=== PATIENT | male | born 1950 | race Caucasian/White ===

== ENCOUNTER 2017-09-11 12:21 | Outpatient (CLI) | payer MEDICARE ==
--- NOTE | 2017-09-11 14:47 | XRAY Report ---
Procedure Date: 09/11/2017 Accession Number: [id number] / [id number] Procedure: XRS - Knee 2 View BILAT CPT Code: FULL RESULT: EXAM: Knee 2 View BILAT DATE: 09/11/2017 12:37 PM CLINICAL HISTORY: KNEE JOINT PAIN . 3 MONTHS, BILATERAL COMPARISON: 12/30/2014. TECHNIQUE: 2 views each. FINDINGS: RIGHT KNEE: Bones: Normal. No fractures or bone lesions. Joints: Mild narrowing of the medial femoral tibial compartment. No joint effusion. Soft Tissues: Normal. No soft tissue swelling. LEFT KNEE: Bones: Normal. No fractures or bone lesions. Joints: Moderate narrowing of the medial femoral tibial compartment and mild narrowing of the lateral femorotibial compartment. No joint effusion. Soft Tissues: Normal. No soft tissue swelling. IMPRESSION: Mild to moderate degenerative changes of the knees as described. RADIA
== END 2017-09-11 12:22 | disposition home or self-care (01) ==
LOC: DI.S 12:21
PROVIDERS: ATTEND Nurse Practitioner Family
DX: M17.0 Bilateral primary osteoarthritis of knee (principal)
CPT/HCPCS: 73565

== ENCOUNTER 2020-06-24 08:00 | Outpatient (CLI) | payer MEDICARE ==
--- NOTE | 2020-06-24 15:31 | XRAY Report ---
PROCEDURE: Knee 3 View BILAT INDICATIONS: BILATERAL KNEE PAIN TECHNIQUE: 3 views of the right and left knee(s) were acquired. COMPARISON: None. FINDINGS: Bones: No fractures or dislocations. No suspicious bony lesions. Mild tricompartment osteoarthritic degenerative changes noted in the knees bilaterally. Soft tissues: Small bilateral suprapatellar joint effusions. No suspicious soft tissue calcifications . IMPRESSION: 1. Mild bilateral knee tricompartmental osteoarthritis. 2. Small nonspecific bilateral knee joint effusions. Reviewed by: Siria Michaels MD, PhD on 06/24/2020 3:29 PM PDT Approved by: Siria Michaels MD, PhD on 06/24/2020 3:29 PM PDT Station ID: [id number]
== END 2020-06-24 23:59 | disposition home or self-care (01) ==
LOC: DI.S 08:00
PROVIDERS: ATTEND Physician Assistant Medical
DX: M17.0 Bilateral primary osteoarthritis of knee (principal); M25.462 Effusion, left knee; M25.461 Effusion, right knee

== ENCOUNTER 2020-08-10 07:24 | Outpatient (CLI) | payer MEDICARE ==
--- NOTE | 2020-08-10 14:26 | XRAY Report ---
PROCEDURE: Knee 4 View BILAT INDICATIONS: BILATERAL KNEE PX TECHNIQUE: 4 views of the bilateral knee(s) were acquired. COMPARISON: X-ray knee bilateral 06/24/2020, 09/11/2017, left the 06/29/2014 FINDINGS: Bones: No fractures or dislocations. No suspicious bony lesions. Right knee demonstrates mild medial and patellofemoral compartment narrowing. Minimal periarticular o steophytes are present. No erosions. Minimal effusion. Left knee demonstrates moderate medial and mild patellofemoral compartment narrowing. Small periartic ular osteophytes are present. No erosions. IMPRESSION: Bilateral predominantly medial and patellofemoral compartment narrowing, left greater th an right consistent with arthritis. Reviewed by: Mai Trinh MD on 08/10/2020 2:25 PM PDT Approved by: Mai Trinh MD on 08/10/2020 2:25 PM PDT Station ID: [id number]
== END 2020-08-10 23:59 | disposition home or self-care (01) ==
LOC: DI.N 07:24
PROVIDERS: ATTEND Physician Assistant
DX: M17.0 Bilateral primary osteoarthritis of knee (principal)

== ENCOUNTER 2021-08-22 08:00 | Outpatient (CLI) | payer MEDICARE ==
--- NOTE | 2021-08-22 17:32 | XRAY Report ---
PROCEDURE: Knee 4 View BILAT INDICATIONS: KNEE PX TECHNIQUE: 4 views of the bilateral knee(s) were acquired. COMPARISON: None. FINDINGS: Bones: No fractures or dislocations. Mild to moderate bilateral tricompartmental osteoarthritis is seen more prominent in medial femoral tibial compartments and medial patellofemoral compartments slig htly worse on the right side. No suspicious bony lesions. Soft tissues: Moderate bilateral suprapatellar joint effusion is seen. No suspicious soft tissue lynn cifications. IMPRESSION: Mild to moderate bilateral tricompartmental osteoarthritis and moderate joint effusion a s above. Reviewed by: Renny Colunga MD on 08/22/2021 5:31 PM PDT Approved by: Renny Colunga MD on 08/22/2021 5:31 PM PDT Station ID: [id number]
== END 2021-08-22 23:59 | disposition home or self-care (01) ==
LOC: DI.WOS 08:00
PROVIDERS: ATTEND Physician Assistant
DX: M17.0 Bilateral primary osteoarthritis of knee (principal); M25.462 Effusion, left knee; M25.461 Effusion, right knee

== ENCOUNTER 2022-05-18 11:27 | Outpatient (CLI) | payer MEDICARE ==
--- NOTE | 2022-05-19 08:59 | XRAY Report ---
PROCEDURE: Knee 4 View BILAT INDICATIONS: BILAT KNEE PAIN TECHNIQUE: 4 views of each knee(s) were acquired. COMPARISON: X-ray knees bilateral, 08/22/2021. FINDINGS: Bones: No fractures or dislocations. No suspicious bony lesions. Severe joint space narrowing in th e medial femorotibial compartment bilaterally. Mild progression of moderate tricompartmental knee caden int degeneration. Soft tissues: Small effusions bilaterally. No suspicious soft tissue calcifications or masses. IMPRESSION: 1. Moderate osteoarthritis bilaterally. 2. Small knee joint effusions bilaterally. Reviewed by: Joseph Serrano MD on 05/19/2022 8:58 AM PDT Approved by: Joseph Serrano MD on 05/19/2022 8:58 AM PDT Station ID: [id number]
== END 2022-05-18 11:28 | disposition home or self-care (01) ==
LOC: DI.WOS 11:27
PROVIDERS: ATTEND Orthopaedic Surgery
DX: M17.0 Bilateral primary osteoarthritis of knee (principal); M25.462 Effusion, left knee; M25.461 Effusion, right knee

== ENCOUNTER 2022-05-24 07:36 | Day surgery (SDC) | payer MEDICARE ==
[~2022-05-24 07:36] MED LIST: ACETAMINOPHEN 500 MG TABLET PO ONE; BUPIVACAINE 0.25% PF 30 ML VIAL ONE; CEFAZOLIN 2G/50ML 0.9% NS 2 GM/50 ML BAG IV ONE; CELECOXIB 100 MG CAPSULE PO ONE; DEXAMETHASONE 10 MG/ML VIAL ONE; KETOROLAC 30 MG/ML VIAL ONE; VANCOMYCIN 1 GM VIAL ONE
[2022-05-24] MEDS ORDERED: LACTATED RINGERS 1,000 ML IV ONE (07:45)
[2022-05-24] MEDS ORDERED: fentaNYL 100 MCG/2 ML VIAL ONE (08:14)
[2022-05-24] MEDS ORDERED: MIDAZOLAM 2 MG/2 ML VIAL ONE (08:14)
--- NOTE | 2022-05-24 08:27 | ANESTHESIA ---
Pre-Anesthesia VS, & Labs - Diagnosis osteoarthritis - Procedure left total knee athroplasty Vital Signs: Temp Pulse Resp BP Pulse Ox O2 Flow Rate 36.2 C L 50 L 13 142/78 H 100 05/24/22 07:46 05/24/22 07:46 05/24/22 07:46 05/24/22 07:46 05/24/22 07:46 Height: 6 ft 2 in Weight (kg): 91 kg Body Mass Index: 25.7 BMI Classification: Overweight - NPO >8 hours Home Medications and Allergies Home Medications: Ambulatory Orders Acetaminophen [Tylenol] 500 mg PO Q4-6H 05/16/22 Diclofenac Sodium 1% Gel [Voltaren Gel] 1 applic TOP PRN PRN 05/16/22 Ibuprofen 200 mg PO DAILY 05/16/22 Acetaminophen [Tylenol] 500 mg PO Q4-6H 05/16/22 Diclofenac Sodium 1% Gel [Voltaren Gel] 1 applic TOP PRN PRN 05/16/22 Ibuprofen 200 mg PO DAILY 05/16/22 Allergies/Adverse Reactions: Allergies Allergy/AdvReac Type Severity Reaction Status Date / Time No Known Drug Allergies Allergy Verified 05/24/22 07:23 Anes History & Medical History - Anesthetic History Anesthesia Complications: reports: No previous complications - Medical History Cardiovascular: reports: None Pulmonary: reports: Sleep apnea Gastrointestinal: reports: GERD Urinary: reports: None Musculoskeletal: reports: Osteoarthritis, Chronic back pain Endocrine/Autoimmune: reports: None Skin: reports: Eczema History of Cancer?: No - Surgical History General: reports: Appendectomy, Colonoscopy Orthopedic: reports: Other Exam General: Alert, Oriented x3 Dental: WNL Mouth Opening: Greater than 4 Fingerbreadths Neck Mobility: Normal Mallampati classification: I Thyromental Distance: greater than 6 cm Respiratory: Lungs clear Cardiovascular: Regular rate Plan Anesthesia Type: Spinal Consent for Procedure(s) Verified and Reviewed: Yes Code Status: Attempt Resuscitation ASA classification: 2-Mild systemic disease Is this case an emergency?: No
[2022-05-24] MEDS ORDERED: MORPHINE 2 MG/ML CARPUJECT IVP PRN (09:10)
[2022-05-24] MEDS ORDERED: HYDROmorphone 0.5 MG/0.5 ML SYRINGE IVP PRN (09:10)
[2022-05-24] MEDS ORDERED: ATROPINE ABBOJECT 1 MG/10 ML SYRINGE IVP PRN (09:10)
[2022-05-24] MEDS ORDERED: fentaNYL 100 MCG/2 ML VIAL IVP PRN (09:10)
[2022-05-24] MEDS ORDERED: ONDANSETRON 4 MG/2 ML VIAL IVP PRN (09:10)
[2022-05-24] MEDS ORDERED: NALOXONE 0.4 MG/ML VIAL IVP PRN (09:10)
[2022-05-24] MEDS ORDERED: METOCLOPRAMIDE 10 MG/2 ML VIAL IVP PRN (09:10)
[2022-05-24] MEDS ORDERED: ePHEDrine 50 MG/ML VIAL IVP PRN (09:10)
[2022-05-24] MEDS ORDERED: BUPIVACAINE 0.25% PF 30 ML VIAL ONE (09:17)
[2022-05-24] MEDS ORDERED: BUPIVACAINE 0.25% PF 30 ML VIAL SUBQ ONE (09:42)
[2022-05-24] MEDS ORDERED: KETOROLAC 30 MG/ML VIAL IVP ONE (09:43)
[2022-05-24] MEDS ORDERED: VANCOMYCIN 1 GM VIAL MC ONE (09:43)
[2022-05-24] MEDS ORDERED: LACTATED RINGERS 1,000 ML IV SCH (10:00)
[2022-05-24] MEDS ORDERED: TRANEXAMIC ACID 1,000 MG/10 ML VIAL ONE (10:39)
[2022-05-24] MEDS ORDERED: BUPIVACAINE 0.5% PF 10 ML VIAL ONE (10:39)
[2022-05-24] MEDS ORDERED: PROPOFOL 500 MG/50 ML 1,000 MG/100 ML VIAL ONE (10:44)
--- NOTE | 2022-05-24 11:25 | OPERATIVE REPORT ---
Operative Report - General Procedure Date: 05/24/22 Planned Procedure: Left total knee arthroplasty Pre-Op Diagnosis: Bilateral knee osteoarthritis, left worse than right Procedure Performed: Left total knee arthroplasty: Mcmahan & Nephew journey 2 cemented total knee utilizing #8 cruciate retaining Oxinium femoral component, #7 Primary tibial baseplate, 9 mm tibial polyethylene bearing, 29 mm biconvex patella Post Op Diagnosis: Same as preoperative diagnosis - Procedure Note Primary Surgeon: Blanco Banegas MD Secondary Surgeon: Wendy ROSE Anesthesia Provider: Balbina Landaverde CRNA Anesthesia Technique: Spinal Estimated Blood Loss (mL): 200 Indications: This is a 71-year-old man with the chief complaint is bilateral knee pain, left worse than right that he has had for several years. His symptoms have progressively worsened to the point that it interferes with activities of daily living and quality of activities. He has tried nonoperative treatment including physical therapy, anti-inflammatory medications, cortisone injections, josiah fication of activities or walking aids. His routine radiographs, weightbearing knees, show bilateral varus degenerative joint disease with medial compartment advanced wear but also tricompartmental wear. The changes are more severe on x- rays of the left knee than the right. His left knee was the most symptomatic knee. He had good motion, good strength and tracking of patella. He did have a varus deformity of the left knee. He did have joint line tenderness and crepitus of the left knee. He has attended joint camp, seen his primary care physician and has signed informed consent at our office prior to surgery. Findings: He had eburnated bone surfaces to the medial compartment with loss of bone on the medial compartment. This is led to a varus deformity which was relatively fixed. The lateral compartment had partial thickness wear of the articular surfaces and osteophytes peripherally. The patellofemoral joint showed considerable articular cartilage loss to the femoral trochlea and peripheral osteophytes. His menisci were still intact as well as his cruciate ligaments Complications: None - Other Other Information/Narrative: The patient was brought to the operating room and was placed in a supine position. A pneumatic tourniquet was applied to the proximal left thigh over cast padding. This was a conical shaped Carlos thigh tourniquet that was sterile. The left lower extremity was prepped and draped in sterile manner in the usual fashion. A bump was placed on the operating room table to facilitate knee flexion of the left knee during surgery. A timeout procedure was performed by the entire operating room team and all were in agreement. A midline Anterior longitudinal incision was made with the knee in flexion. A medial parapatellar arthrotomy was made. The quadriceps tendon was incised proximally for about 3 cm. The anterior horn of medial and lateral menisci were released and part of patellar fat pad was excised. The knee was flexed and the patella was dislocated laterally. A drill hole was made in the intramedullary notch with a 9.5 mm drill. Osteophytes about the proximal tibia and femur had been removed with a rondure. The distal femoral cutting guide was aligned parallel to the posterior condyles. The intramedullary santiago and guide was advanced and the distal femoral guide was stabilized with half pins. The distal 5 degrees valgus cut was made through the distal femoral guide. Next the extra medullary tibial guide was assembled and aligned to the mechanical axis in both sagittal and coronal planes. Tibial referencing was done to allow 3 mm of bone from the most affected side and 11 mm from the least affected side. The tibial guide was stabilized with half pins. Retractors were placed medially and laterally to protect the collateral ligaments and a retractor was placed directly against the posterior bone to sublux the tibia anteriorly. The [employer] precision 8 saw was used to make the tibial proximal cut. The tibial block was removed as a single piece and the menisci were removed as well. The extension gap was assessed with a extension block spacer using a 10 mm spacer and this was found to fit well as well as the 9 mm spacer block with the knee in 90 degrees of flexion. Next the femoral positioning guide was applied and aligned to the epicondylar axis and [place] line. This was secured in place with approximately 3 degrees of external rotation. The size of the femur at the anterior lateral trochlea was a #8. Drill holes were made in the 5 and 1 #8 cutting block was and secured. The 5 cuts were made to the captured block using [place] precision 8 saw. The flexion gap was assessed with the 10 mm spacer and was found to fit well. The patella was then prepared. A biconvex patellar reamer was used. The tibial trial #7 was then applied to the tibia and aligned to the mechanical axis. The tibial medullary drill and The punch fin was utilized. Trial reduction was performed with the femoral and tibial components in place. Notch resection was then through the Femoral trial component. Pulsatile lavage was performed. A tourniquet was applied during the cementing process. The components were inserted sequentially: Tibia, femur and lastly patellar component. Excess cement was removed and the knee was placed in extension during the hardening. Dilute Betadine irrigation was performed. The knee had full range of motion, good patellar tracking. There was good stability of the knee in full extension, mid flexion and 90 degrees of flexion. There was good alignment of the left knee. The tourniquet had been deflated and had been in place for 21 minutes. Hemostasis was achieved with electrocautery. Vancomycin powder 2 g placed prior to deep closure. The deep closure was performed with #2 Ethibond proximal and distal to the patella with the knee in 40 degrees of flexion. 1. STRATAFIX suture was then used to close the arthrotomy incision. 2-0 Vicryl was used to close the subcutaneous tissue. 3-0 Monocryl was used to do a subcuticular skin closure. Dermabond was applied to the skin incision. After the Dermabond had hardened, a silver impregnated dressing was applied. The patient tolerated the procedure well and received 2 g of Ancef intravenously and 2 g of tranexamic acidA physician information assistant was medically necessary to help with prepping and draping, positioning, protection of vital structures, assistance during the procedure including wound closure, dressing and/or splinting.
[2022-05-24] MEDS ORDERED: LACTATED RINGERS 200 ML IV ONE (11:45)
[2022-05-24] MEDS ORDERED: DOCUSATE SODIUM 100 MG CAPSULE PO PRN (11:47)
[2022-05-24] MEDS ORDERED: SODIUM CHLORIDE FLUSH 0.9% 10 ML SYRINGE IVP PRN (11:47)
[2022-05-24] MEDS ORDERED: SODIUM CHLORIDE 0.9% 1,000 ML IV ONE (11:47)
--- NOTE | 2022-05-24 12:21 | XRAY Report ---
PROCEDURE: Knee 2 View LT INDICATIONS: Post operative imaging TECHNIQUE: 2 views of the left knee(s) were acquired. COMPARISON: X-ray knees bilateral, 05/18/2022. FINDINGS: Bones: There is total knee arthroplasty. The prosthesis is anatomically aligned. Soft tissues: Overlying postsurgical changes noted IMPRESSION: Expected postsurgical changes. Reviewed by: Joseph Serrano MD on 05/24/2022 12:20 PM PDT Approved by: Joseph Serrano MD on 05/24/2022 12:20 PM PDT Station ID: [id number]
[2022-05-24] MEDS: NS W/20 MEQ KCL 1,000 ML IV SCH (12:34)
[2022-05-24] MEDS: ACETAMINOPHEN 500 MG TABLET PO SCH ×3 (12:34→23:40)
--- NOTE | 2022-05-24 13:31 | ANESTHESIA POST OP EVALUATION ---
Anesthesia Post Eval - Post Anesthesia Eval Vitals: Last Vital Signs Temp 36.3 C L 05/24/22 12:55 Pulse 50 L 05/24/22 12:55 Resp 16 05/24/22 12:55 BP 119/71 05/24/22 12:55 Pulse Ox 100 05/24/22 12:55 O2 Flow Rate CV Function Including HR & BP: Stable Pain Control: Satisfactory Nausea & Vomiting: Negative Mental Status: Baseline Respiratory Status: Airway Patent Hydration Status: Satisfactory Anesthesia Complications: None
[2022-05-24] MEDS: CEFAZOLIN 2G/50ML 0.9% NS 2 GM/50 ML BAG IV SCH ×2 (14:38→21:46)
[2022-05-24] MEDS: SODIUM CHLORIDE FLUSH 0.9% 10 ML SYRINGE IVP SCH ×2 (15:25→23:41)
[2022-05-24] MEDS: oxyCODONE 5 MG TABLET PO PRN ×2 (18:09→23:55)
[2022-05-24] MEDS: ASPIRIN EC 81 MG TABLET PO SCH (20:35)
[2022-05-24] MEDS: CELECOXIB 100 MG CAPSULE PO SCH (20:35)
[2022-05-24] MEDS: ethyl alcohoL 62% SWAB AMPULE NAS SCH (20:36)
[2022-05-24] MEDS: fentaNYL 100 MCG/2 ML VIAL IVP PRN (20:39)
[2022-05-25] MEDS: NS W/20 MEQ KCL 1,000 ML IV SCH (02:41)
[2022-05-25] MEDS: oxyCODONE 5 MG TABLET PO PRN ×2 (05:51→12:32)
[2022-05-25] MEDS: ACETAMINOPHEN 500 MG TABLET PO SCH ×2 (06:17→11:45)
[2022-05-25] MEDS: ASPIRIN EC 81 MG TABLET PO SCH (09:09)
[2022-05-25] MEDS: ethyl alcohoL 62% SWAB AMPULE NAS SCH (09:09)
[2022-05-25] MEDS: CELECOXIB 100 MG CAPSULE PO SCH (09:09)
[2022-05-25] MEDS: fentaNYL 100 MCG/2 ML VIAL IVP PRN (09:09)
[2022-05-25] MEDS: SODIUM CHLORIDE FLUSH 0.9% 10 ML SYRINGE IVP SCH ×2 (11:24→11:45)
[2022-05-25 14:37] VITALS: BP 129/75
== END 2022-05-25 14:20 | disposition home or self-care (01) ==
LOC: SDS 07:36 → MS2 11:41 → SDS 05-25 14:20
PROVIDERS: ATTEND Orthopaedic Surgery
DX: M17.0 Bilateral primary osteoarthritis of knee (principal); G47.30 Sleep apnea, unspecified
CPT/HCPCS: 27447; 73560; 97110; 97161; 97166; 97530; 97535; A9270; J0690; J3370; J7120

== ENCOUNTER 2022-07-11 08:00 | Outpatient (CLI) | payer MEDICARE ==
--- NOTE | 2022-07-11 16:52 | XRAY Report ---
PROCEDURE: Knee 4 View LT INDICATIONS: LEFT TOTAL KNEE F/U TECHNIQUE: 4 views of the left knee(s) were acquired. COMPARISON: 05/24/2022 FINDINGS: Bones: Left knee arthroplasty components are in place. Developing periprosthetic lucencies subjacent to the tibial plateau component. This measures just over 2 mm. No fractures. Soft tissues: Moderate-sized knee joint effusion. No suspicious soft tissue calcifications or masses . IMPRESSION: Findings suspicious for tibial plateau component loosening. Correlate clinically. Reviewed by: Johanne Theodore MD on 07/11/2022 4:51 PM PDT Approved by: Johanne Theodore MD on 07/11/2022 4:51 PM PDT Station ID: [id number]
== END 2022-07-11 23:59 | disposition home or self-care (01) ==
LOC: DI.WOS 08:00
PROVIDERS: ATTEND Orthopaedic Surgery
DX: Z47.1 Aftercare following joint replacement surgery (principal); Z96.652 Presence of left artificial knee joint; M25.462 Effusion, left knee

== ENCOUNTER 2022-09-07 08:55 | Outpatient (CLI) | payer MEDICARE, MEDICAID ==
[2022-09-07 15:14] LABS: BASOPHILS # (AUTO) 0.1 10^3/uL (0.0-0.1); BASOPHILS % (AUTO) 1.1 %; EOSINOPHILS # (AUTO) 0.1 10^3/uL (0.0-0.7); EOSINOPHILS % (AUTO) 2.3 %; HCT - HEMATOCRIT 40.7 % (42.0-52.0); HGB - HEMOGLOBIN 12.5 g/dL (14.0-18.0); LYMPHOCYTES % (AUTO) 38.6 %; MEAN CORPUSCULAR HEMOGLOBIN 25.7 pg (27.0-31.0); MEAN CORPUSCULAR HGB CONC 30.7 g/dL (32.0-36.0); MEAN CORPUSCULAR VOLUME 83.7 fL (80.0-94.0); MEAN PLATELET VOLUME 10.3 fL (7.4-11.4); MONOCYTES # (AUTO) 0.5 10^3/uL (0.0-1.0); MONOCYTES % (AUTO) 8.8 %; NEUTROPHILS # (AUTO) 2.6 10^3/uL (1.5-6.6); NEUTROPHILS % (AUTO) 49.2 %; PLT - PLATELET COUNT 224 10^3/uL (130-450); RED BLOOD COUNT 4.86 10^6/uL (4.70-6.10); RED CELL DISTRIBUTION WIDTH 14.8 % (12.0-15.0); WHITE BLOOD COUNT 5.2 x10^3/uL (4.8-10.8)
== END 2022-09-07 08:56 | disposition home or self-care (01) ==
LOC: LAB.S 08:55
PROVIDERS: ATTEND Orthopaedic Surgery
DX: Z01.812 Encounter for preprocedural laboratory examination (principal); M17.0 Bilateral primary osteoarthritis of knee
CPT/HCPCS: 36415; 85025

== ENCOUNTER 2022-11-29 06:26 | Day surgery (SDC) | payer MEDICARE, MEDICAID ==
[2022-11-29] MEDS ORDERED: ACETAMINOPHEN 500 MG TABLET PO ONE (06:32)
[2022-11-29] MEDS ORDERED: CELECOXIB 100 MG CAPSULE PO ONE (06:32)
[2022-11-29] MEDS ORDERED: DEXAMETHASONE 10 MG/ML VIAL ONE (06:32)
[2022-11-29] MEDS ORDERED: ceFAZolin 2 GM VIAL ONE (06:33)
[2022-11-29] MEDS ORDERED: LACTATED RINGERS 1,000 ML IV ONE (06:38)
[2022-11-29] MEDS ORDERED: PROPOFOL 500 MG/50 ML 500 MG/50 ML VIAL ONE ×2 (06:55→09:55)
[2022-11-29] MEDS ORDERED: dexAMETHasone 4 MG TABLET PO ONE (07:00)
[2022-11-29] MEDS ORDERED: VANCOMYCIN 1 GM VIAL ONE (07:06)
[2022-11-29] MEDS ORDERED: KETOROLAC 30 MG/ML VIAL ONE (07:07)
[2022-11-29] MEDS ORDERED: BUPIVACAINE 0.25% PF 30 ML VIAL ONE (07:07)
[2022-11-29] MEDS ORDERED: BUPIVACAINE 0.5% PF 10 ML VIAL ONE (07:07)
[2022-11-29] MEDS ORDERED: MIDAZOLAM 2 MG/2 ML VIAL ONE (07:22)
[2022-11-29] MEDS ORDERED: TRANEXAMIC ACID 1,000 MG/10 ML VIAL ONE (07:24)
[2022-11-29] MEDS ORDERED: ONDANSETRON 4 MG/2 ML VIAL ONE (07:24)
[2022-11-29] MEDS ORDERED: GLYCOPYRROLATE 1 MG/5 ML VIAL ONE (08:14)
[2022-11-29] MEDS ORDERED: ePHEDrine 50 MG/ML VIAL IVP ONE (08:23)
[2022-11-29] MEDS ORDERED: VANCOMYCIN 1 GM VIAL MC ONE (08:30)
[2022-11-29] MEDS ORDERED: KETOROLAC 30 MG/ML VIAL IVP ONE (08:30)
[2022-11-29] MEDS ORDERED: BUPIVACAINE 0.25% PF 30 ML VIAL SUBQ ONE (08:31)
[2022-11-29] MEDS ORDERED: HYDROGEN PEROXIDE 3% 473 ML BOTTLE TOP ONE ×2 (08:31)
[2022-11-29] MEDS ORDERED: ePHEDrine 50 MG/ML VIAL IVP PRN (08:36)
[2022-11-29] MEDS ORDERED: ATROPINE ABBOJECT 1 MG/10 ML SYRINGE IVP PRN (08:36)
[2022-11-29] MEDS ORDERED: fentaNYL 100 MCG/2 ML VIAL IVP PRN (08:36)
[2022-11-29] MEDS ORDERED: ONDANSETRON 4 MG/2 ML VIAL IVP PRN ×2 (08:36→10:59)
[2022-11-29] MEDS ORDERED: HYDROmorphone 0.5 MG/0.5 ML SYRINGE IVP PRN (08:36)
[2022-11-29] MEDS ORDERED: NALOXONE 0.4 MG/ML VIAL IVP PRN (08:36)
--- NOTE | 2022-11-29 08:36 | ANESTHESIA ---
Pre-Anesthesia VS, & Labs - Diagnosis R knee OA - Procedure R TKA Height: 6 ft 3 in Weight (kg): 88.4 kg Body Mass Index: 24.3 BMI Classification: Normal - NPO >8 hours - Lab Results Lab results reviewed: Yes Home Medications and Allergies Home Medications: Ambulatory Orders No Known Home Medications 11/24/22 No Known Home Medications 11/24/22 Allergies/Adverse Reactions: Allergies Allergy/AdvReac Type Severity Reaction Status Date / Time No Known Drug Allergies Allergy Verified 11/29/22 07:26 Anes History & Medical History - Anesthetic History Anesthesia Complications: reports: No previous complications Family history of Anesthesia Complications: Denies Family history of Malignant Hyperthermia: Denies - Medical History Cardiovascular: reports: None Pulmonary: reports: Sleep apnea Gastrointestinal: reports: GERD (rare symptoms) Urinary: reports: None Neuro: reports: Peripheral neuropathy (b/l feet) Musculoskeletal: reports: Osteoarthritis, Chronic back pain Endocrine/Autoimmune: reports: None Skin: reports: Eczema Smoking Status: Never smoker Psychosocial: reports: Cannabis - Surgical History General: reports: Appendectomy, Colonoscopy Orthopedic: reports: Knee replacement, Other Dermatologic: reports: Other Exam General: Alert, Oriented x3, Cooperative Dental: WNL Mouth Openin Fingerbreadth Neck Mobility: Normal Mallampati classification: II Thyromental Distance: 4-6 cm Respiratory: Lungs clear Cardiovascular: Regular rate Plan Anesthesia Type: Spinal Consent for Procedure(s) Verified and Reviewed: Yes Code Status: Attempt Resuscitation ASA classification: 2-Mild systemic disease Is this case an emergency?: No
[2022-11-29] MEDS ORDERED: LACTATED RINGERS 1,000 ML IV SCH (09:00)
--- NOTE | 2022-11-29 10:14 | OPERATIVE REPORT ---
Operative Report - General Procedure Date: 11/29/22 Planned Procedure: Right total knee replacement Pre-Op Diagnosis: Varus osteoarthritis right knee Procedure Performed: Right total knee arthroplasty using the Mcmahan & Nephew total knee system: All components cemented with [place] cement, #8 cruciate retaining femoral component Oxinium, #7 tibial baseplate, 9 mm tibial bearing, 26 mm biconvex patellar component Post Op Diagnosis: Same as preoperative diagnosis - Procedure Note Primary Surgeon: Blanco Banegas MD Secondary Surgeon: Leonard Wong MD, Wendy Gupta [facility] Anesthesia Provider: Narciso Palmer CRNA Anesthesia Technique: Spinal Estimated Blood Loss (mL): 200 Indications: This is a 72-year-old man with bilateral knee osteoarthritis who has tried nonoperative treatment without success as he has had gradual progression of symptoms that made it difficult to do activities of daily living and activities he desires to do which require walking. He has had a previous left total knee replacement earlier this year with favorable outcome and desires the same for the right knee. His right knee did show some joint line tenderness, decreased motion but good stability and strength. His x-rays showed [id number] contact of the medial compartment and also changes to the patellofemoral joint consistent with patellofemoral and varus osteoarthritis right knee. He has been evaluated preoperatively and felt to be a suitable candidate for surgery. He has signed informed consent. Findings: There were eburnated bone surfaces to the medial compartment and femoral trochlea, central wear to the patella, partial thickness loss to lateral compartment, menisci and cruciates intact, nonspecific synovitis Complications: None - Other Other Information/Narrative: The patient was brought to the operating room and was placed in a supine position. A pneumatic tourniquet was applied to the proximal right thigh over cast padding. This was a conical shaped Carlos thigh tourniquet that was sterile. An table knee bump positioner was placed on the operating room table to facilitate knee flexion of the right knee during surgery. A timeout procedure was performed by the entire operating room team and all were in agreement. A midline longitudinal incision was made with the knee in flexion. A medial parapatellar arthrotomy was made. The anterior horn of medial and lateral menisci were released and part of patellar fat pad was excised. The knee was flexed and the patella was dislocated laterally. A drill hole was made in the intramedullary notch with a 9.5 mm drill. Osteophytes about the proximal tibia and femur had been removed with a rongeur. The distal femoral cutting guide was aligned parallel to the posterior condyles. The intramedullary santiago and guide was advanced and the distal femoral guide was stabilized with half pins. The distal 5 degrees valgus cut was made through the distal femoral guide, primary cut. Next the extra medullary tibial guide was assembled and applied and aligned to the mechanical axis in both sagittal and coronal planes. Tibial referencing was done to allow 3 mm of bone from the most affected side and 10 mm from the least affected side. The tibial guide was stabilized with half pins. Retractors were placed medially and laterally to protect the collateral ligaments and a retractor was placed directly against the posterior bone to sublux the tibia anteriorly. A [employer] saw was used to make the tibial proximal cut. The tibial block was removed as a single piece and the menisci were removed as well. The extension gap was assessed with a extension block spacer using a 9 mm spacer and this was found to fit well as well as the 9 mm spacer block with the knee in 90 degrees of flexion. Next the femoral positioning guide was applied and aligned to the epicondylar axis and [place] line. This was secured in place with approximately 3 degrees of external rotation. The size of the femur at the anterior lateral trochlea was a #8. Drill holes were made in the 5 and 1 #8 cutting block was inserted and secured. The 5 cuts were made to the captured block using precision saw. The flexion gap was assessed with the 9 mm spacer and was found to fit well. The patella was then prepared. A biconvex patellar reamer was used. The tibial trial #7 was then applied to the tibia and aligned to the mechanical axis. The punch fin was utilized. Trial reduction was performed with the femoral and tibial components in place. Notch resection was then through the trial component with reamer and box osteotome. Pulsatile lavage was performed. A tourniquet was applied during the cementing process. The components were inserted sequentially: Tibia, femur and lastly patellar component. Excess cement was removed and the knee was placed in extension during the hardening. Dilute Betadine irrigation was performed. The knee had full range of motion, good patellar tracking. There was good stability of the knee in full extension mid flexion and 90 degrees of flexion. There was good alignment of the right knee. The tourniquet had been deflated and had been in place for 22 minutes. Hemostasis was achieved with electrocautery. Vancomycin 2 g of powder was inserted The deep closure was performed with #1 Stratofix suture to close the arthrotomy incision. 2-0 stratofix was used to close the subcutaneous tissue. 3-0 Monocryl was used to do a subcuticular skin closure. Dermabond was applied to the skin incision. After the Dermabond had hardened, a silver impregnated dressing was applied. The patient tolerated the procedure well and received 2 g of Ancef intravenously and 2 g of tranexamic acid.A physician engineering assistant was used and felt to be medically necessary to provide retraction, protection of vital structures, exposure, skin closure and dressing.
[2022-11-29] MEDS ORDERED: LACTATED RINGERS 600 ML IV ONE ×2 (10:39)
--- NOTE | 2022-11-29 10:57 | ANESTHESIA POST OP EVALUATION ---
Anesthesia Post Eval - Post Anesthesia Eval Vitals: Last Vital Signs Temp 36.0 C L 11/29/22 10:55 Pulse 48 L 11/29/22 10:55 Resp 14 11/29/22 10:55 BP 116/51 L 11/29/22 10:55 Pulse Ox 100 11/29/22 10:55 O2 Flow Rate CV Function Including HR & BP: Stable Pain Control: Satisfactory Nausea & Vomiting: Negative Mental Status: Baseline Respiratory Status: Airway Patent Hydration Status: Satisfactory Anesthesia Complications: None
[2022-11-29] MEDS ORDERED: DOCUSATE SODIUM 100 MG CAPSULE PO PRN (10:59)
[2022-11-29] MEDS ORDERED: ONDANSETRON ODT 4 MG TABLET TL PRN (10:59)
[2022-11-29] MEDS ORDERED: SODIUM CHLORIDE FLUSH 0.9% 10 ML SYRINGE IVP PRN (10:59)
[2022-11-29] MEDS ORDERED: ACETAMINOPHEN 500 MG TABLET PO SCH (11:00)
[2022-11-29] MEDS ORDERED: ceFAZolin (2G) 2 GM in SODIUM CHLORIDE 0.9% MINIBAG 100 ML IV SCH (11:00)
[2022-11-29] MEDS: NS W/20 MEQ KCL 1,000 ML IV SCH (12:00)
--- NOTE | 2022-11-29 13:05 | XRAY Report ---
PROCEDURE: Knee 2 View RT INDICATIONS: post operative imaging TECHNIQUE: 2 views of the right knee(s) were acquired. COMPARISON: X-ray bilateral knees 05/18/2022. FINDINGS: Bones: Postoperative changes from right knee arthroplasty. The hardware is in expected location. No surrounding fracture or lucency. No suspicious bony lesions. Soft tissues: Postoperative changes are present IMPRESSION: Expected postoperative appearance of right knee arthroplasty. Reviewed by: Garland Allison MD on 11/29/2022 1:04 PM PDT Approved by: Garland Allison MD on 11/29/2022 1:04 PM PDT Station ID: [id number]
[2022-11-29] MEDS: ACETAMINOPHEN 500 MG TABLET PO SCH ×2 (13:55→19:09)
[2022-11-29] MEDS: ceFAZolin (2G) 2 GM in SODIUM CHLORIDE 0.9% MINIBAG 100 ML IV SCH (17:14)
[2022-11-29] MEDS: SODIUM CHLORIDE FLUSH 0.9% 10 ML SYRINGE IVP SCH (17:15)
[2022-11-29] MEDS: CELECOXIB 100 MG CAPSULE PO SCH (20:55)
[2022-11-29] MEDS: ASPIRIN EC 81 MG TABLET PO SCH (20:56)
[2022-11-29] MEDS: ethyl alcohoL 62% SWAB AMPULE NAS SCH (20:56)
[2022-11-29] MEDS: oxyCODONE 5 MG TABLET PO PRN (22:00)
[2022-11-30] MEDS: ACETAMINOPHEN 500 MG TABLET PO SCH ×2 (01:05→09:25)
[2022-11-30] MEDS: SODIUM CHLORIDE FLUSH 0.9% 10 ML SYRINGE IVP SCH ×2 (01:06→08:07)
[2022-11-30] MEDS: ceFAZolin (2G) 2 GM in SODIUM CHLORIDE 0.9% MINIBAG 100 ML IV SCH (01:06)
[2022-11-30] MEDS: NS W/20 MEQ KCL 1,000 ML IV SCH ×2 (04:01→10:34)
[2022-11-30] MEDS: oxyCODONE 5 MG TABLET PO PRN ×2 (04:01→12:53)
[2022-11-30] MEDS ORDERED: traMADol 50 MG TABLET PO SCH (07:45)
[2022-11-30] MEDS: CELECOXIB 100 MG CAPSULE PO SCH (08:07)
[2022-11-30] MEDS: ASPIRIN EC 81 MG TABLET PO SCH (08:07)
[2022-11-30 08:29] VITALS: BP 145/78; O2SAT 100
--- NOTE | 2022-11-30 09:08 | PROVIDER PROGRESS NOTE ---
Subjective - General Procedure Date: 11/29/22 Post Op Days: 1 Procedure Performed: right total knee arthroplasty - Other Other Information/Narrative: patient is alert, lying in bed he reports well-controlled pain with current pain regimen but is nervous about pain in physical therapy He denies nausea or vomiting after meals He denies chest pain or dyspnea he states that over the past several months, he has noticed increased voiding frequency with decreased urinary volumes. He had one straight catherization yesterday Objective - Patient Data Reviewed Vital Signs: Yes Vital Signs: Vital Signs x48h Temp Pulse Resp BP Pulse Ox 11/30/22 07:40 36.5 C 60 16 145/78 H 100 11/30/22 04:21 36.3 C L 62 15 126/74 96 11/30/22 01:12 36.3 C L 64 15 126/78 97 Weight: Weight 11/28/22 11/29/22 11/30/22 23:59 23:59 23:59 Weight (kg) 88.4 kg Intake & Output: Intake and Output Totals x24h 11/28/22 11/29/22 11/30/22 23:59 23:59 23:59 Intake Total 2020.000 Output Total 1750 975 Balance 270.000 -975 - Imaging Results Radiology Imaging: positive: Final report received - Current Medications Current Medications: Current Medications Generic Name Dose Route Start Last Admin Trade Name Freq PRN Reason Stop Dose Admin Acetaminophen 1,000 mg 11/29/22 13:00 11/30/22 01:05 Acetaminophen 500 Mg Tablet PO 1,000 mg Q6H DARNELL Administration Alcohol 1 amp 11/29/22 21:00 11/29/22 20:56 Ethyl Alcohol 62% Swab Ampule DAYAN 1 amp BID DARNELL Administration Aspirin 81 mg 11/29/22 21:00 11/30/22 08:07 Aspirin Ec 81 Mg Tablet PO 81 mg BID DARNELL Administration Celecoxib 200 mg 11/29/22 21:00 11/30/22 08:07 Celecoxib 100 Mg Capsule PO 200 mg BID DARNELL Administration Potassium Chloride/Sodium Chloride 1,000 mls @ 100 mls/hr 11/29/22 11:00 11/30/22 04:01 Normal Saline 0.9% W/20 Meq Kcl IV 100 mls/hr .Q10H DARNELL Administration Oxycodone HCl 5 mg 11/29/22 10:59 11/30/22 04:01 Oxycodone 5 Mg Tablet PO 5 mg Q6HR PRN Administration Severe Breakthrough pain(8-10) Sodium Chloride 10 ml 11/29/22 17:00 11/30/22 08:07 Sodium Chloride Flush 0.9% 10 Ml Syringe IVP 10 ml 0100,0900,1700 [facility] Administration - Physical Exam Comments/Other: well-developed, well-nourished, 72-year-old male, no acute distress. He appears comfortable Dressing is dry and intact secured by Rafi bandage about right knee. No evidence of hematoma or drainage Neurovascular intact to the femoral and sciatic nerve distributions of the right lower extremity ABX Reporting Has patient been on IV antibiotics over the past 48 hours?: Yes Impression/Plan - Problem List Problem List: 72-year-old male with a past medical history of malignant melanoma is postoperative day 1 from a right total knee arthroplasty by Dr. Banegas at [facility]. Patient is recovering well with well-controlled pain without nausea, vomiting, chest pain or dyspnea. He is awaiting physical therapy evaluation today. He reports he is urinating at preoperative baseline which has decreased over the past several months. He has not sought evaluation for urinary symptoms. He is urinating spontaneously. Plan: - DVT prophylaxis with 81 mg of aspirin twice daily for 6 weeks, SCDs in hospital - Physical and occupational therapy evaluation today and assessment for discharge home - Pain control with scheduled tylenol, celebrex, tramadol and oxycodone as needed - Weight bearing as tolerated with front wheeled walker at all times - Follow up with orthopedic clinic in 5 days - Mepilex dressing to remain in place until follow up - Refer to OPS discharge instructions and call the orthopedic office with outstanding questions - Bowel regimen - Normal diet, IV fluids to be discontinued when tolerating oral diet without nausea and emesis
[2022-11-30] MEDS: ethyl alcohoL 62% SWAB AMPULE NAS SCH (10:33)
--- NOTE | 2022-11-30 11:28 | PHARMACY PROGRESS NOTE ---
- Best Possible Medication History Admit Date and Time: Processed by: Nursing As the person ultimately responsible for medication therapy, providers are able to order a medication from an existing home medication list in [facility] via the "Reconcile Routine" prior to Confirmation of that medication by support engineer. Such practice is discouraged except when the physician, in their clinical judgment, deems that a medical need exists for a medication without regard to previous use.
== END 2022-11-30 14:14 | disposition home or self-care (01) ==
LOC: SDS 06:26 → MS3 10:46 → SDS 11-30 14:14
PROVIDERS: ATTEND Orthopaedic Surgery
DX: M17.11 Unilateral primary osteoarthritis, right knee (principal); G47.30 Sleep apnea, unspecified; R35.0 Frequency of micturition
CPT/HCPCS: 27447; 51701; 73560; 97162; 97165; 97535; A9270; J3370; J7120

== ENCOUNTER 2023-01-09 08:00 | Outpatient (CLI) | payer MEDICARE, MEDICAID ==
--- NOTE | 2023-01-09 17:04 | XRAY Report ---
PROCEDURE: Knee 4 View RT INDICATIONS: RIGHT TOTAL KNEE TECHNIQUE: 4 views of the knee(s) were acquired. COMPARISON: None. FINDINGS: Bones: No fractures or dislocations. No suspicious bony lesions. Well-aligned arthroplasty withou t hardware complication. Soft tissues: Small knee joint effusion. No suspicious soft tissue calcifications or masses. IMPRESSION: Well-aligned right total knee arthroplasty without hardware complication. Reviewed by: Bharath Garcia on 01/09/2023 4:03 PM [facility] Approved by: Bharath Garcia on 01/09/2023 4:03 PM [facility] Station ID: [id number]
== END 2023-01-09 23:59 | disposition home or self-care (01) ==
LOC: DI.WOS 08:00
PROVIDERS: ATTEND Orthopaedic Surgery
DX: Z96.653 Presence of artificial knee joint, bilateral (principal)

== ENCOUNTER 2023-05-21 08:00 | Outpatient (CLI) | payer MEDICAID, MEDICARE ==
--- NOTE | 2023-05-21 16:07 | XRAY Report ---
PROCEDURE: Knee 4 View LT INDICATIONS: LEFT TOTAL KNEE FOLLOWUP TECHNIQUE: 4 views of the knee(s) were acquired. COMPARISON: X-ray knee 07/11/2022, 01/09/2023 FINDINGS: Bones: No fractures or dislocations. No suspicious bony lesions. Previously identified lucency ad jacent to the tibial plateau component of the left knee arthroplasty is most prominent since 2022. Ri ght knee arthroplasty is present. Hardware is intact without evidence of hardware fracture or peripro sthetic lucency to suggest loosening. Soft tissues: No knee joint effusion. No suspicious soft tissue calcifications or masses. IMPRESSION: Less prominent appearance of questionable lucency within the tibial plateau of the left knee arthropl asty. Reviewed by: Mai Trinh MD on 05/21/2023 4:06 PM PDT Approved by: Mai Trinh MD on 05/21/2023 4:06 PM PDT Station ID: [id number]
== END 2023-05-21 23:59 | disposition home or self-care (01) ==
LOC: DI.WOS 08:00
PROVIDERS: ATTEND Orthopaedic Surgery
DX: Z96.652 Presence of left artificial knee joint (principal)